=== PATIENT | female | born 2000 | race Caucasian/White ===

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

== ENCOUNTER 2020-09-01 23:06 | Emergency (ER) | payer OTHER, BC ==
[~2020-09-01] VITALS: Ht 170.2 cm; Wt 65.8 kg
[~2020-09-01 23:06] MED LIST: AMOX250S5 PO; DEXAINTSOL PO; HYDR15SO8 PO; TETRACAINESUCKERS MT
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
[2020-09-01 23:34] LABS: HEMOGLOBIN 12.7 g/dL (11.5-16.0); WHITE BLOOD COUNT 6.6 10^3/uL (4.3-11.0)
[2020-09-01 23:43] LABS: ALBUMIN 4.5 GM/DL (3.2-4.5); CHLORIDE 109 MMOL/L (98-107); POTASSIUM 3.4 MMOL/L (3.6-5.0); SODIUM 141 MMOL/L (135-145)
[2020-09-01 23:44] LABS: CALCIUM 8.4 MG/DL (8.5-10.1)
[2020-09-01 23:45] LABS: INR 0.9 (0.8-1.4); PROTHROMBIN TIME PATIENT 12.8 SEC (12.2-14.7); TRIGLYCERIDES 87 MG/DL (<150); VLDL CHOLESTEROL 17 MG/DL (5-40)
[2020-09-01 23:46] LABS: GLUCOSE 94 MG/DL (70-105); TOTAL PROTEIN 7.1 GM/DL (6.4-8.2)
[2020-09-01 23:47] LABS: BILIRUBIN,TOTAL 0.3 MG/DL (0.1-1.0); CARBON DIOXIDE 21 MMOL/L (21-32)
[2020-09-01 23:49] LABS: ALKALINE PHOSPHATASE 43 U/L (40-136); CREATININE SERUM 0.72 MG/DL (0.60-1.30); GFR ESTIMATED > 60
[2020-09-01 23:50] LABS: CHOLESTEROL 240 MG/DL (< 200)
[2020-09-01 23:51] LABS: BILIRUBIN,DIRECT 0.1 MG/DL (0.0-0.3); BILIRUBIN,INDIRECT 0.2 MG/DL; BUN/CREATININE RATIO 8
[2020-09-01 23:52] LABS: HDL CHOLESTEROL 69 MG/DL (40-60); MAGNESIUM 2.3 MG/DL (1.6-2.4)
[2020-09-01 23:53] LABS: ALANINE AMINOTRANSFERASE 13 U/L (0-55)
[2020-09-02] MEDS ORDERED: LACTATED RINGERS 1,000 ML IV ONE ×2 (00:15→02:45)
[2020-09-02] MEDS ORDERED: NS 100 ML (IVPB) BAG IV ONE (00:15)
[2020-09-02] MEDS ORDERED: IOHEXOL 350 MG/ML 100 ML (OMNIPAQUE 350) VIAL IV ONE (00:15)
[2020-09-02 01:18] LABS: BILIRUBIN,URINE NEGATIVE (NEGATIVE); CLARITY,URINE CLEAR; COLOR,URINE YELLOW; GLUCOSE, URINE (UA) NEGATIVE (NEGATIVE); KETONES,URINE NEGATIVE (NEGATIVE); LEUKOCYTE ESTERASE ,URINE NEGATIVE (NEGATIVE); NITRITE,URINE NEGATIVE (NEGATIVE); PH,URINE 6.5 (5-9); PROTEIN,URINE NEGATIVE (NEGATIVE)
[2020-09-02 01:38] LABS: AMPHETAMINE SCREEN, URINE NEGATIVE (NEGATIVE); BARBITURATE SCREEN URINE NEGATIVE (NEGATIVE); BENZODIAZEPINES SCREEN URINE NEGATIVE (NEGATIVE); CANNABINOID SCREEN, URINE POSITIVE (NEGATIVE); COCAINE SCREEN URINE NEGATIVE (NEGATIVE); METHADONE STAT NEGATIVE (NEGATIVE); METHAMPHETAMINE SCREEN URINE S NEGATIVE (NEGATIVE); OPIATE SCREEN URINE NEGATIVE (NEGATIVE); OXYCODONE STAT NEGATIVE (NEGATIVE); PROPOXYPHENE STAT NEGATIVE (NEGATIVE); TRICYCLIC ANTIDEPRESSANTS SCRE NEGATIVE (NEGATIVE)
[2020-09-02 01:39] LABS: BACTERIA,URINE NEGATIVE /HPF
[2020-09-02] MEDS ORDERED: LACTATED RINGERS 2,000 ML IV ONE (02:30)
--- NOTE | 2020-09-02 04:15 | NUR ---
PT RESTING ON ER CART WITH NO DISTRESS NOTED.
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
--- NOTE | 2020-09-02 06:15 | NUR ---
DR. MÉNDEZ CONTACTED PT MOTHER REGARDING PT UPDATE AND D/C PLAN.
[2020-09-02] MEDS ORDERED: NAPR500T8 PO (06:23)
[2020-09-02] MEDS ORDERED: CYCL10TA9 PO (06:23)
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
[2020-09-02] MEDS ORDERED: KETOROLAC 30 MG/ML VIAL IVP ONE (06:45)
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
[2020-09-02 07:11] VITALS: BP 110/81
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
--- NOTE | 2020-09-02 07:13 | Diagnostic Imaging Report ---
INDICATION: Pain FINDINGS: Three-view right shoulder show no fracture or dislocation. IMPRESSION: No acute appearing abnormality. Dictated by: Dictated on workstation # [id number]
== END 2020-09-02 07:11 | disposition home or self-care (01) ==
LOC: EDUNIT# 23:06 → ER 23:07
DX: S29.011A Strain of muscle and tendon of front wall of thorax, initial encounter (principal); S46.911A Strain of unspecified muscle, fascia and tendon at shoulder and upper arm level, right arm, initial encounter; F10.129 Alcohol abuse with intoxication, unspecified; F12.90 Cannabis use, unspecified, uncomplicated; F19.90 Other psychoactive substance use, unspecified, uncomplicated; F17.210 Nicotine dependence, cigarettes, uncomplicated; Z91.040 Latex allergy status; V89.2XXA Person injured in unspecified motor-vehicle accident, traffic, initial encounter
CPT/HCPCS: 70450; 71045; 71260; 72125; 72128; 72131; 72170; 73000; 73030; 74177; 80053; 80061; 80076; 80306; 81000; 83735; 83874; 84484; 84703; 85027; 85610; 85730; 86850; 86900; 86901; 93005; 93041; 99284; G0480; 36415; 80320

== ENCOUNTER → 2020-09-28 | Outpatient (CLI) | payer OTHER, BC ==
[~2020-09-28] MED LIST changes: +CYCL10TA9 PO; +NAPR500T8 PO
--- NOTE | 2020-09-28 18:18 | Diagnostic Imaging Report ---
INDICATION: Deformity of the right sternal border. COMPARISON: CT chest of 09/01/2020. FINDINGS: No fracture within the right clavicle. AC joint alignment is normal. The sternoclavicular joints are grossly symmetric. No fracture within the distal aspect of the right first or second ribs. On retrospective review of the CT chest from 09/01/2020, there is no osseous abnormality in this region. IMPRESSION: No radiographic abnormality along the right sternoclavicular junction. Dictated by: Dictated on workstation # [id number]
== END ==
LOC: RAD 12:58
PROVIDERS: ATTEND Nurse Practitioner Family
DX: S49.91XA Unspecified injury of right shoulder and upper arm, initial encounter (principal); V89.2XXA Person injured in unspecified motor-vehicle accident, traffic, initial encounter
CPT/HCPCS: 73000

== ENCOUNTER 2021-05-28 09:08 | Outpatient (RCR) | payer BC, OTHER ==
[~2021-05-28 09:08] MED LIST changes: +CYCL10TA25 PO; -CYCL10TA9 PO
== END 2021-07-04 | disposition home or self-care (01) ==
PROVIDERS: ATTEND Nurse Practitioner Family
DX: S49.91XA Unspecified injury of right shoulder and upper arm, initial encounter (principal); V89.2XXA Person injured in unspecified motor-vehicle accident, traffic, initial encounter

== ENCOUNTER 2021-08-20 08:28 | Emergency (ER) | payer BC ==
[~2021-08-20] VITALS: Ht 170.2 cm; Wt 72.6 kg
--- NOTE | 2021-08-20 11:13 | ED Lower Extremity ---
General Chief Complaint: Lower Extremity Stated Complaint: LOW EXT PAIN,COVID + Nursing Triage Note: PT AMBULATE TO ROOM 08 WITH C/O BILAT KNEE, HIP, AND LOWER BACK PAIN STARTING AT 0200 THIS MORNING. PT REPORTS COVID POS 08/09/21 Source: patient Exam Limitations: no limitations (SATINDER ROCHE APRN) History of Present Illness Date Seen by Provider: Aug 20, 2021 Time Seen by Provider: 11:11 Initial Comments To ER with bilateral knee pain that awakened her from sleep last night at about 4 AM. She also has bilateral proximal thigh and low back pain. She has had some stress incontinence only with coughing for the past few days. No fevers. She is out of COVID quarantine tested positive on 08/09/2021. No fevers or chills and no history of this pain before. No loss of sensation or genitals. Her knees are tender to touch but denies injury. She Onset: this morning Severity: moderate Pain/Injury Location: bilateral knee Method of Injury: fell Modifying Factors: Worse With Movement (SATINDER ROCHE APRN) Allergies and Home Medications Allergies Coded Allergies: latex (Verified Allergy, Unknown, 09/01/20) Patient Home Medication List Home Medication List Reviewed: Yes (SATINDER ROCHE APRN) Amoxicillin (Amoxicillin) 250 Mg/5 Ml Susp, 2 TSP PO BID Prescribed by: SAIMA MAZARIEGOS on 01/12/18 1035 Cyclobenzaprine HCl (Cyclobenzaprine HCl) 10 Mg Tablet, 10 MG PO Q8H PRN for SPASMS Prescribed by: JUSTUS MÉNDEZ on 09/02/20 0623 Dexamethasone (Decadron Intensol Oral Solution (Repackaging)) 1 Mg/1 Ml Della, 2 TSP PO DAILY PRN for PAIN Prescribed by: SAIMA MAZARIEGOS on 01/12/18 1035 Hydrocodone/Acetaminophen (Hydrocodon-Acetamin 7.5-325/15 ML) 15 Ml Solution, 2 TSP PO Q4H PRN for PAIN-MODERATE TO SEVERE Prescribed by: SAIMA MAZARIEGOS on 01/12/18 1035 Hydrocodone/Acetaminophen (Hydrocodone-Acetamin 5-325 mg) 1 Each Tablet, 1 TAB PO Q4H PRN for PAIN-MODERATE (5-7) Prescribed by: SATINDER ROCHE on 08/20/21 1257 Naproxen (Naproxen) 500 Mg Tablet.dr, 500 MG PO BID Prescribed by: JUSTUS MÉNDEZ on 09/02/20 0623 Naproxen (Naprosyn) 500 Mg Tablet, 500 MG PO BID Prescribed by: SATINDER ROCHE on 08/20/21 1257 Tetracaine (Tetracaine Suckers) Sucker Ea, 1 EA MT UD PRN for PAIN Prescribed by: SAIMA MAZARIEGOS on 01/12/18 1035 Review of Systems Constitutional: see HPI EENTM: see HPI Respiratory: no symptoms reported Cardiovascular: no symptoms reported Genitourinary: no symptoms reported Musculoskeletal: no symptoms reported Skin: no symptoms reported Psychiatric/Neurological: No Symptoms Reported (SATINDER ROCHE APRN) Past [id number] Hx Patient Social History Tobacco Use?: No Smoking Status: Never a Smoker Smokeless Tobacco Frequency: Never a User Use of E-Cig and/or Vaping dev: No Use of E-Cig and/or Vaping Roberto: Never a User Substance use?: No Alcohol Use?: Yes Alcohol Frequency: Couple times a week Pt feels they are or have been: No (SATINDER ROCHE APRN) Seasonal Allergies Seasonal Allergies: No (SATINDER ROCHE APRN) Past Medical History Surgeries: Yes (WISDOM TEETH) Tonsillectomy Respiratory: No Cardiac: No Neurological: No Reproductive Disorders: No Female Reproductive Disorders: Denies Genitourinary: No Gastrointestinal: No Musculoskeletal: No Endocrine: No HEENT: Yes (S/P TONSILLECTOMY AND WISDOM TEETH REMOVAL) Tonsilitis Loss of Vision: Denies Hearing Impairment: Denies Cancer: No Psychosocial: Yes ADD/ADHD Integumentary: No Blood Disorders: No (SATINDER ROCHE APRN) Physical Exam Vital Signs Vital Signs - First Documented 08/20/21 08/20/21 08:36 13:02 Temp 35.6 Pulse 86 Resp 16 B/P (MAP) 117/64 (81) Pulse Ox 98 O2 Delivery Room Air (LAURYN SANTOS MD) Vital Signs Capillary Refill : Less Than 3 Seconds (SATINDER ROCHE APRN) Height, Weight, BMI Height: 5'7.00" Weight: 145lbs. 0.0oz. 65.563996ld; 25.00 BMI Method: General Appearance: WD/WN, no apparent distress HEENT: PERRL/EOMI, normal ENT inspection Respiratory: no respiratory distress, no accessory muscle use Hips: bilateral hip non-tender, bilateral hip normal inspection, bilateral hip normal range of motion Legs: bilateral leg non-tender, bilateral leg normal inspection, bilateral leg normal range of motion Knees: bilateral knee pain, bilateral knee soft tissue tenderness, bilateral knee other (No palpable effusion no erythema) Ankles: bilateral ankle non-tender, bilateral ankle normal inspection, bilateral ankle normal range of motion Feet: bilateral foot non-tender, bilateral foot normal inspection, bilateral foot normal range of motion Neurologic/Psychiatric: alert, normal mood/affect, oriented x 3 Skin: normal color, warm/dry (SATINDER ROCHE APRN) Progress/Results/Core Measures Results/Orders Lab Results Laboratory Tests Test 08/20/21 08:45 08/20/21 11:30 Range/Units White Blood Count 17.0 H 4.3-11.0 10^3/uL Red Blood Count 4.39 3.80-5.11 10^6/uL Hemoglobin 13.4 11.5-16.0 g/dL Hematocrit 40 35-52 % Mean Corpuscular Volume 91 80-99 fL Mean Corpuscular Hemoglobin 31 25-34 pg Mean Corpuscular Hemoglobin Concent 33 32-36 g/dL Red Cell Distribution Width 12.2 10.0-14.5 % Platelet Count 364 130-400 10^3/uL Mean Platelet Volume 10.5 9.0-12.2 fL Immature Granulocyte % (Auto) 2 % Neutrophils (%) (Auto) 63 42-75 % Lymphocytes (%) (Auto) 24 12-44 % Monocytes (%) (Auto) 8 0-12 % Eosinophils (%) (Auto) 3 0-10 % Basophils (%) (Auto) 0 0-10 % Neutrophils # (Auto) 10.6 H 1.8-7.8 10^3/uL Lymphocytes # (Auto) 4.1 H 1.0-4.0 10^3/uL Monocytes # (Auto) 1.3 H 0.0-1.0 10^3/uL Eosinophils # (Auto) 0.6 H 0.0-0.3 10^3/uL Basophils # (Auto) 0.0 0.0-0.1 10^3/uL Immature Granulocyte # (Auto) 0.4 H 0.0-0.1 10^3/uL Neutrophils % (Manual) 70 % Lymphocytes % (Manual) 19 % Monocytes % (Manual) 7 % Eosinophils % (Manual) 4 % Blood Morphology Comment NORMAL Erythrocyte Sedimentation Rate 4 0-20 MM/HR Sodium Level 138 135-145 MMOL/L Potassium Level 3.6 3.6-5.0 MMOL/L Chloride Level 105 98-107 MMOL/L Carbon Dioxide Level 21 21-32 MMOL/L Anion Gap 12 5-14 MMOL/L Blood Urea Nitrogen 20 H 7-18 MG/DL Creatinine 0.78 0.60-1.30 MG/DL Estimat Glomerular Filtration Rate 111 BUN/Creatinine Ratio 26 Glucose Level 92 70-105 MG/DL Calcium Level 7.9 L 8.5-10.1 MG/DL Corrected Calcium 8.0 L 8.5-10.1 MG/DL Total Bilirubin 0.2 0.1-1.0 MG/DL Aspartate Amino Transf (AST/SGOT) 16 5-34 U/L Alanine Aminotransferase (ALT/SGPT) 26 0-55 U/L Alkaline Phosphatase 40 40-136 U/L C-Reactive Protein High Sensitivity 0.03 0.00-0.50 MG/DL Total Protein 6.2 L 6.4-8.2 GM/DL Albumin 3.9 3.2-4.5 GM/DL Procalcitonin 0.03 <0.10 NG/ML Serum Test, Qualitative NEGATIVE NEGATIVE Urine Color YELLOW Urine Clarity CLEAR Urine pH 6.0 5-9 Urine Specific [place] 1.015 L 1.016-1.022 Urine Protein NEGATIVE NEGATIVE Urine Glucose (UA) NEGATIVE NEGATIVE Urine Ketones NEGATIVE NEGATIVE Urine Nitrite NEGATIVE NEGATIVE Urine Bilirubin NEGATIVE NEGATIVE Urine Urobilinogen 0.2 < = 1.0 MG/DL Urine Leukocyte Esterase NEGATIVE NEGATIVE Urine RBC (Auto) NEGATIVE NEGATIVE Urine RBC RARE /HPF Urine WBC RARE /HPF Urine Squamous Epithelial Cells 0-2 /HPF Urine Renal Epithelial Cells NONE /HPF Urine Crystals NONE /LPF Urine Bacteria NEGATIVE /HPF Urine Casts NONE /LPF Urine Mucus NEGATIVE /LPF Urine Culture Indicated NO Urine Test NEGATIVE NEGATIVE (LAURYN SANTOS MD) Medications Given in ED Current Medications Medications Dose Ordered Sig/Kathryn Route Start Time Stop Time Status Last Admin Dose Admin Acetaminophen/ Hydrocodone Bitart 1 ea ONCE ONCE PO 08/20/21 12:00 08/20/21 12:01 DC 08/20/21 12:47 1 EA Ketorolac Tromethamine 30 mg ONCE ONCE IVP 08/20/21 11:15 08/20/21 11:16 DC 08/20/21 11:25 30 MG (LAURYN SANTOS MD) Vital Signs/I&O 08/20/21 08/20/21 08:36 13:02 Temp 35.6 Pulse 86 76 Resp 16 16 B/P (MAP) 117/64 (81) 121/68 Pulse Ox 98 O2 Delivery Room Air Room Air (LAURYN SANTOS MD) Blood Pressure Mean: 81 Departure Communication (Admissions) 1158-describes the pain in both of her knees as a burning sensation that keeps her from walking very well today. She did just finish Paxlovid and prednisone 2 days ago for COVID. That would account for the leukocytosis. (SATINDER ROCHE APRN) Impression Primary Impression: Bilateral leg pain Additional Impression: Leukocytosis Disposition: 01 HOME, SELF-CARE Condition: Stable Departure-Patient Inst. Decision time for Depature: 11:52 (SATINDER ROCHE APRN) Referrals: [employer] [facility] (PCP/Family) Primary Care Physician Patient Instructions: Knee Pain ED Add. Discharge Instructions: 1. Call [employer] [facility] today to make an appointment to be seen first of next week for recheck. Tylenol and ibuprofen for pain control. Return to ER for any fevers or worsening symptoms. All discharge instructions reviewed with patient and/or family. Voiced understanding. Scripts Naproxen (Naprosyn) 500 Mg Tablet 500 MG PO BID, #30 TAB 0 Refills Prov: SATINDER ROCHE APRN 08/20/21 Hydrocodone/Acetaminophen (Hydrocodone-Acetamin 5-325 mg) 1 Each Tablet 1 TAB PO Q4H PRN for PAIN-MODERATE (5-7), #14 TAB Prov: SATINDER ROCHE APRN 08/20/21 Work/School Note: Work Release Form Date Seen in the Emergency Department: Aug 20, 2021 Return to Work: Aug 23, 2021 ATTENDING PHYSICIAN NOTE: I was physically present as attending physician in the emergency department during the care of this patient, but I was not directly involved in the decision making or delivery of care for this patient. (LAURYN SANTOS MD) SATINDER ROCHE APRN Aug 20, 2021 11:12 LAURYN SANTOS MD Aug 20, 2021 19:12
[2021-08-20] MEDS ORDERED: KETOROLAC 30 MG/ML VIAL IVP ONE (11:15)
[2021-08-20 11:16] LABS: BASOPHILS % (AUTO) 0 % (0-10); EOSINOPHILS # (AUTO) 0.6 10^3/uL (0.0-0.3); EOSINOPHILS % (AUTO) 3 % (0-10); HEMATOCRIT 40 % (35-52); HEMOGLOBIN 13.4 g/dL (11.5-16.0); LYMPHOCYTES # (AUTO) 4.1 10^3/uL (1.0-4.0); LYMPHOCYTES % (AUTO) 24 % (12-44); MEAN CORPUSCULAR HEMOGLOBIN 31 pg (25-34); MEAN CORPUSCULAR HGB CONC 33 g/dL (32-36); MEAN CORPUSCULAR VOLUME 91 fL (80-99); MEAN PLATELET VOLUME 10.5 fL (9.0-12.2); MONOCYTES # (AUTO) 1.3 10^3/uL (0.0-1.0); MONOCYTES % (AUTO) 8 % (0-12); NEUTROPHILS # (AUTO) 10.6 10^3/uL (1.8-7.8); NEUTROPHILS % (AUTO) 63 % (42-75); PLATELET COUNT 364 10^3/uL (130-400)
[2021-08-20 11:18] LABS: ALBUMIN 3.9 GM/DL (3.2-4.5); POTASSIUM 3.6 MMOL/L (3.6-5.0)
[2021-08-20 11:19] LABS: CALCIUM 7.9 MG/DL (8.5-10.1)
[2021-08-20 11:21] LABS: TOTAL PROTEIN 6.2 GM/DL (6.4-8.2)
[2021-08-20 11:22] LABS: BILIRUBIN,TOTAL 0.2 MG/DL (0.1-1.0)
[2021-08-20 11:24] LABS: CREATININE SERUM 0.78 MG/DL (0.60-1.30)
[2021-08-20 11:32] LABS: ERYTHROCYTE SEDIMENTATION RATE 4 MM/HR (0-20)
[2021-08-20 11:37] LABS: EOSINOPHILS % (MANUAL) 4 %; LYMPHOCYTES % (MANUAL) 19 %; MONOCYTES % (MANUAL) 7 %; NEUTROPHILS % (MANUAL) 70 %; RBC MORPH NORMAL
[2021-08-20 11:38] LABS: BILIRUBIN,URINE NEGATIVE (NEGATIVE); CLARITY,URINE CLEAR; COLOR,URINE YELLOW; GLUCOSE, URINE (UA) NEGATIVE (NEGATIVE); KETONES,URINE NEGATIVE (NEGATIVE); LEUKOCYTE ESTERASE ,URINE NEGATIVE (NEGATIVE); NITRITE,URINE NEGATIVE (NEGATIVE); PROTEIN,URINE NEGATIVE (NEGATIVE)
[2021-08-20 11:45] LABS: BACTERIA,URINE NEGATIVE /HPF; RBC,URINE RARE /HPF; SQUAMOUS EPITHELIAL CELL,UR 0-2 /HPF; WBC,URINE RARE /HPF
[2021-08-20] MEDS ORDERED: LACTATED RINGERS 1,000 ML IV SCH (11:45)
[2021-08-20] MEDS ORDERED: HYDROcodone/APAP 5 MG/325 MG (LORTAB) TAB PO ONE (12:00)
--- NOTE | 2021-08-20 12:44 | Diagnostic Imaging Report ---
PROCEDURE: MRI lumbar spine without contrast. TECHNIQUE: Multiplanar, multisequence MRI of the lumbar spine was performed without contrast. INDICATION: Low back pain. COMPARISON: 09/01/2020. FINDINGS: 5 lumbar type vertebral bodies are visualized with the last well-formed disc space designated L5-S1. No acute fracture or dislocation is seen in the lumbar spine. Alignment is anatomic. Scattered small Schmorl's nodes are seen in the lumbar spine. The bone marrow signal is normal. The conus terminates at the L1 level. No masses are seen associated with the conus or nerve roots of the cauda equina. No epidural collections are identified. No significant degenerative changes are seen in the lumbar spine. No spinal canal or foraminal stenosis. Paravertebral soft tissues are unremarkable. IMPRESSION: 1. No acute fracture or dislocation in the lumbar spine. 2. No significant degenerative changes are seen in the lumbar spine. No high-grade spinal canal or foraminal stenosis. 3. Small Schmorl's nodes scattered in the lumbar spine. No associated bone marrow edema. Dictated by: Dictated on workstation # [id number]
[2021-08-20] MEDS ORDERED: NAPR-1071 PO (12:57)
[2021-08-20] MEDS ORDERED: ACHD5005 PO (12:57)
[2021-08-20 13:02] VITALS: BP 121/68
== END 2021-08-20 13:09 | disposition home or self-care (01) ==
LOC: EDUNIT# 08:28 → ER 08:31
DX: M79.605 Pain in left leg (principal); M79.604 Pain in right leg; D72.829 Elevated white blood cell count, unspecified
CPT/HCPCS: 36415; 72148; 80053; 81000; 84145; 84703; 85007; 85027; 85652; 86141